=== PATIENT | female | born 2000 | race Caucasian/White ===

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

== ENCOUNTER 2020-02-15 13:55 | Emergency (ER) | payer BC ==
--- OUTSIDE RECORDS SUMMARY | 2020-02-15 14:01 | XMS REPORT | Continuity of Care Document ---
:2000 External Reference #:[id number] Author Name Rita Bae MD Address [address] [place] [id number] Care Team Providers Name Role Phone [facility] Care Team Information Internal Audit Senior Manager - Mental Health Problems Active Problems Provider Date Insomnia Rita Bae MD Onset: 06/14/2019 Generalized anxiety disorder Rita Bae MD Onset: 09/22/2017 Social History Type Date Description Comments Sex Unknown Tobacco Use Start: Unknown Patient has never smoked Smoking Status Reviewed: 02/21/19 Patient has never smoked Allergies, Adverse Reactions, Alerts Description No Known Drug Allergies Medications Active Medications SIG Qnty Indications Ordering Provider Date Hydroxyzine HCL 1 by mouth every 30tabs G47.00 Rita Bae, 09/01/2017 10mg bedtime as needed Tablets Joellen placed 10/2017 Z30.42 Unknown 13.5mg IUD Immunizations CPT Code Status Date Vaccine Reaction Lot # [id number] Given 09/01/2016 Flu Vaccine NOS nysiis 30959 Given 09/01/2016 Menactra/Menveo Meningococcal Vaccine nysiis 87407 Given 09/02/2013 HPV Vaccine (Gardasil) 3 Dose Schedule nysiis 58201 Given 10/05/2012 HPV Vaccine (Gardasil) 3 Dose Schedule nysiis 67808 Given 08/31/2012 HPV Vaccine (Gardasil) 3 Dose Schedule nysiis 77209 Given 08/18/2011 Menactra/Menveo Meningococcal Vaccine nysiis 64575 Given 08/18/2010 Tdap (Adacel) Ages 7 And Above Only nysiis 34484 Given 07/23/2007 Varicella (Chicken Pox) Immunization nysiis 08050 Given 07/23/2007 Hepatitis A, Ped/Adolescent 2 Dose nysiis Schedule U-Polio Given 05/09/2005 Polio (Non Billable) Unspecified nysiis U-DTaP Given 05/09/2005 DTaP (Non Billable) Unspecified nysiis [id number] 82421 Given 05/09/2005 MMR Virus Immunization nysiis U-DTaP Given 02/22/2002 DTaP (Non Billable) Unspecified nysiis [id number] 75637 Given 02/22/2002 Varicella (Chicken Pox) Immunization nysiis 46906 Given 11/06/2001 Pneumococcal (Prevnar 7)Child Under Five nysiis 12306 Given 11/06/2001 MMR Virus Immunization nysiis 72268 Given 11/06/2001 Hepatitis B Vac Ped/Adolescent 3 Dose nysiis Schedule U-HIB Given 11/06/2001 Hib (Non Billable) Unspecified nysiis U-Polio Given 04/24/2001 Polio (Non Billable) Unspecified nysiis U-DTaP Given 01/31/2001 DTaP (Non Billable) Unspecified nysiis [id number] 45451 Given 01/31/2001 Pneumococcal (Prevnar 7)Child Under Five nysiis U-Polio Given 2000 Polio (Non Billable) Unspecified nysiis U-HIB Given 2000 Hib (Non Billable) Unspecified nysiis U-DTaP Given 2000 DTaP (Non Billable) Unspecified nysiis [id number] 46129 Given 2000 Hepatitis B Vac Ped/Adolescent 3 Dose nysiis Schedule 11662 Given 2000 Pneumococcal (Prevnar 7)Child Under Five nysiis U-Polio Given 2000 Polio (Non Billable) Unspecified nysiis U-HIB Given 2000 Hib (Non Billable) Unspecified nysiis U-DTaP Given 2000 DTaP (Non Billable) Unspecified nysiis [id number] 07843 Given 2000 Hepatitis B Vac Ped/Adolescent 3 Dose nysiis Schedule 15381 Given 2000 Pneumococcal (Prevnar 7)Child Under Five nysiis 01203 Refused 12/24/2019 Influenza Virus Vaccine,Quadrivalent,Split,Preserv Free, 0.5mL,Im [id number] Refused 02/21/2019 Flu Vaccine NOS Vital Signs Date Vital Result Comment 12/24/2019 2:16pm Weight 131.00 lb Weight Percentile 57th Heart Rate 62 /min BP Systolic 110 mmHg BP Diastolic 66 mmHg Respiratory Rate 16 /min Height 63.25 inches 5'3.25" Height Percentile 34 % O2 % BldC Oximetry 99 % Ra BMI (Body Mass Index) 23.0 kg/m2 Body Mass Index Percentile 65 % 06/14/2019 3:47pm Weight 135.00 lb Weight Percentile 65th Heart Rate 60 /min BP Systolic 106 mmHg BP Diastolic 64 mmHg Respiratory Rate 16 /min Height 63.25 inches 5'3.25" Height Percentile 34 % O2 % BldC Oximetry 98 % Ra BMI (Body Mass Index) 23.7 kg/m2 Body Mass Index Percentile 72 % Results Description No Information Available Procedures Description No Information Available Medical Devices Description No Information Available Encounters Description No Information Available Assessments Date Code Description Provider 12/24/2019 G47.00 Insomnia, unspecified Rita Bae MD 12/24/2019 F41.1 Generalized anxiety disorder Rita Bae MD Plan of Treatment Future Appointment(s):06/16/2020 2:30 pm - [facility] at [facility]12/24/2019 - Rita Bae MDG47.00 Insomnia, unspecifiedComments:will give hydroxyzine for her sleep. advised to use this as neededFollow up:6-months follow up without labs prior.F41.1 Generalized anxiety disorderComments:doing well on no medication - call for worsening symptoms Functional Status Functional Condition Comment Date Status GLASSES Active Mental Status Description No Information Available Referrals Description No Information Available
--- OUTSIDE RECORDS SUMMARY | 2020-02-15 14:01 | XMS REPORT ---
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 ALLERGIES No Known Allergies ENCOUNTERS Encounter Location Date Diagnosis [facility], [place]BGYN [place], [place] [id number] [facility] Jan, Encounter for removal of OBGYN [facility], intrauterine [place] [id number] contraceptive device Z30.432 and Encounter for initial prescription of contraceptive pills Z30.011 [facility] [address] Jul, OBGYN [place], [place] [id number] [facility] [address] Nov, [place]BGYN [place], [place] [id number] [facility] Nov, Encounter for OBGYN [facility], gynecological examination [place] [id number] (general) (routine) without abnormal findings Z01.419 and Encounter for routine checking of intrauterine contraceptive device Z30.431 [facility] Oct, Encounter for routine OBGYN [facility], checking of intrauterine [place] [id number] contraceptive device Z30.431 [facility] Oct, Family history of OBGYN [facility], malignant neoplasm [place] [id number] ovary Z80.41 and Encounter for routine checking of intrauterine contraceptive device Z30.431 [facility] Sep, [place] [phone] [facility] Sep, [place] [id number] [facility] Sep, Encounter for other OBGYN [facility], general counseling and [place] [id number] advice on contraception Z30.09 and Family history of malignant neoplasm of ovary Z80.41 [facility] Sep, OBGYN [place], [place] [phone] IMMUNIZATIONS No Known Immunizations SOCIAL HISTORY Never Assessed REASON FOR REFERRAL FUNCTIONAL STATUS PLAN OF CARE Activity Details Follow Up 3 Months OCP f/u Reason: VITAL SIGNS Height 63.5 in 2020-02-13 Weight 130 lbs 2020-02-13 BMI 22.66 kg/m2 2020-02-13 Blood pressure systolic 100 mm Hg 2020-02-13 Blood pressure diastolic 60 mm Hg 2020-02-13 MEDICATIONS Medication Instructions Dosage Frequency Start End Duration Status Date Date hydroxyzine orally QHS 1 tab(s) Active hydrochloride 10 mg Loestrin Fe 1/20 orally once a day 1 tab(s) 24h Jan, 28 days Active with iron 20 2020 mcg-1 mg Excedrin 250 orally every 6 2 tab(s) 6h Active mg-250 mg-65 mg hours fluoxetine 20 mg orally once a day 1 cap(s) 24h Active Kyleena 19.5 mg by intrauterine 1 ea Active administration once PROCEDURES Procedure Date Ordered Result Body Site IUD REMOVAL February 13, 2020 RESULTS No Results REASON FOR VISIT IUD removal Insurance Providers [facility] Member Patient Patient Patient Patient Patient Subscriber Subscriber Subscriber Group Insurance Plan Plan Plan Plan ID Relationship Address Phone Name Date of ID Name Date of No Type Insurance Insurance Insurance Coverage to Subscriber Address Phone Name Dates Beth Wright [phone] Beth Hernandezabella [id number] Blue [id number] [place] [address] Cross/Blue [place] Cross/Blue [facility] [address] [facility] MEDICAL (GENERAL) HISTORY Type Description Date Medical History Migraines Medical History Anxiety
== END 2020-02-15 14:36 | disposition left against medical advice (07) ==
LOC: UCCORT 13:55
DX: Z53.21 Procedure and treatment not carried out due to patient leaving prior to being seen by health care provider (principal)